=== PATIENT | male | born 1975 | race Caucasian/White ===

== ENCOUNTER 2019-03-17 17:54 | Emergency (ER) | payer MEDICAID ==
[~2019-03-17] VITALS: Ht 165.1 cm; Wt 79.6 kg
[2019-03-17 18:03] VITALS: BP 107/61; PULSE 52; RESP 20; Ht 165.1 cm; Wt 79.6 kg
[2019-03-17] MEDS ORDERED: IBUPROFEN 600 MG TAB PO ONE (18:30)
[2019-03-17] MEDS ORDERED: NAPR-985 PO (19:17)
--- NOTE | 2019-03-17 21:58 | ERD ---
ER Documentation Chief Complaint Chief Complaint right wrist pain from work x1 week ago HPI 43-year-old male with no significant past medical history presenting to the emergency department complaints of right wrist pain after work injury 1 week ago. The patient states he was lifting a heavy box at work 1 week ago when he had severe pain in his wrist. He took no medication for relief of symptoms. Pain is worse with movement, intermittent, and moderate in severity. No other symptoms or injuries reported at this time. ROS All systems reviewed and are negative except as per history of present illness. Medications Home Meds Active Scripts Naproxen* (Naprosyn*) 500 Mg Tablet, 500 MG PO BID PRN for PAIN AND/OR INFLAMMATION, #30 TAB Prov:CELESTE BAKER PA-C 03/17/19 Allergies Allergies: Coded Allergies: Penicillins (Verified Allergy, Unknown, 03/17/19) PMhx/Soc Medical and Surgical Hx: pt denies Medical Hx, pt denies Surgical Hx Hx Alcohol Use: No Hx Substance Use: No Hx Tobacco Use: No Smoking Status: Never smoker FmHx Family History: No diabetes Physical Exam Vitals Vital Signs Date Temp Pulse Resp B/P (MAP) Pulse Ox O2 O2 Flow FiO2 Time Delivery Rate 03/17/19 98.3 52 20 107/61 99 18:03 (76) Physical Exam Const: No acute distress Head: Atraumatic Eyes: Normal Conjunctiva ENT: Normal External Ears, Nose and Mouth. Neck: Full range of motion. No meningismus. Resp: No respiratory distress. Skin: No petechiae or rashes Back: No midline or flank tenderness Ext: Subjective tenderness palpation over the radial and ulnar aspect of the right wrist. Patient is neurovascularly intact. No obvious deformity or open fracture noted. 2+ radial pulses noted to the right upper extremity. Neur: Awake and alert Psych: Normal Mood and Affect Results 24 hrs Current Medications Medications Dose Sig/Zuly Start Time Status Last (Trade) Ordered Route PRN Stop Time Admin Dose Reason Admin Ibuprofen 600 mg ONCE ONCE 03/17/19 DC 03/17/19 (Motrin) PO 18:30 18:53 03/17/19 18:[address] [address] Radiology Main Line: [phone] DIAGNOSTIC IMAGING REPORT Patient: UDAY TORRES : 1975 Age: 43 Sex: M MR #: [id number] DOS: 03/17/19 0000 Ordering MD: CELESTE BAKER PA-C [facility] Room[facility]Bed: PROCEDURE: Right wrist x-ray CLINICAL INDICATION: pain TECHNIQUE: AP, lateral and oblique views of the wrist were obtained. COMPARISON: None FINDINGS: There is normal mineralization. No acute fracture or dislocation is seen. There are no significant degenerative changes. There is no significant soft tissue swelling. RPTAT: AA IMPRESSION: Normal x-ray of the right wrist. .Angelo Heck MD, MD Date Time Electronically viewed and signed by .Angelo Heck MD, on 03/17/2019 18:56 .S/ CC: CELESTE BAKER PA-C [id number] Procedures/MDM 43-year-old male presented to the emergency department with signs and symptoms most consistent with right wrist sprain. X-rays negative for any sign of fracture. The full report interpreted by the radiologist may be viewed above. Patient required Nas wrap for compression.Splint Assessment: Neurovascularly intact post splint placement with good fit. Patient's extremity symptoms have stabilized while they have been evaluated in the department and are appropriate for outpatient follow up. No evidence of compartment syndrome, neurologic injury, vascular injury, open joint, open fracture, tendon laceration, or foreign body. Patient is advised to follow-up with orthopedic physician as an outpatient if indicated. He was advised that he may require further advanced imaging such as MRI. No evidence of life-threatening pathology at time of discharge. Pt/family in agreement with discharge plan/diagnosis. Pt/family advised to return immediately with any new or worsening symptoms. Follow-up with primary care physician within the next 1- 2 days. Departure Diagnosis: Primary Impression: Right wrist sprain Encounter type: initial encounter Qualified Codes: S63.501A - Unspecified sprain of right wrist, initial encounter Condition: Fair Patient Instructions: Wrist Sprain [facility] Usted se dunham hecho un examen mdico de control que le indica que no est en karsten condicin que requiera tratamiento urgente en el Departamento de Emergencia. Un estudio ms profundo y el tratamiento de fitzpatrick condicin pueden esperar sin ningn riesgo hasta que usted sea atendida/o en el consultorio de fitzpatrick mdico o karsten clnica. Es responsabilidad suya arreglar karsten ayaan para el seguimiento del star. MANEJO DE CONDICIONES NO URGENTES EN EL FUTURO 1) Si usted tiene un mdico de atencin primaria: Usted debera llamar a fitzpatrick mdico de atencin primaria antes de venir al departamento de emergencia. Despus de las horas de consultorio, fitzpatrick doctor o fitzpatrick asociado/a est disponible por telfono. El mdico o enfermero de graham en el servicio telefnico puede asesorarle por natalia medio para atender el problema, o star contrario se puede programar karsten ayaan. 2) Si usted no tiene un mdico de atencin primaria: Llame al mdico o clnica de referencia que aparece abajo aime las horas de consultorio para hacer karsten ayaan para que le vean. CLINICAS: [facility] [phone] [facility] [phone] [facility] [phone] [facility] [phone] [place] [phone] [facility]. [phone] [address] [facility]. [facility] Urgent Care 7 a.m.- 11 p.m. Every Day of the Week NO APPOINTMENT OR AUTHORIZATION NEEDED [facility] Hours: Mon-Thu 9:00 AM - 5:00 PM Additional Instructions: Llame al doctor MAANA y danyel karsten AYAAN PARA DENTRO DE 1-2 BLAKELY.Dgale a la secretaria que nosotros le instruimos hacer esta ayaan.Avise o llame si fitzpatrick condicin se empeora antes de la ayaan. Regresa aqui si peor o no mejor. CELESTE BAKER PA-C March 17, 2019 21:58
== END 2019-03-17 19:52 | disposition home or self-care (01) ==
LOC: FTE 17:54
DX: S63.501A Unspecified sprain of right wrist, initial encounter (principal); X50.0XXA Overexertion from strenuous movement or load, initial encounter; Y92.89 Other specified places as the place of occurrence of the external cause
CPT/HCPCS: 29125; 73110; Z7502; Z7610